=== PATIENT | female | born 1940 | race Caucasian/White ===

== ENCOUNTER → 2024-01-16 09:24 | Outpatient (REF) | payer MEDICARE, OTHER, SELFPAY | LOC: HWRAD 09:24 | PROVIDERS: ATTENDING PHYSICIAN Internal Medicine; REFERRING PHYSICIAN Obstetrics & Gynecology Gynecology | DX: Z12.31 Encounter for screening mammogram for malignant neoplasm of breast (principal); M81.0 Age-related osteoporosis without current pathological fracture | CPT/HCPCS: 77063; 77067; 77080 ==

== ENCOUNTER → 2024-05-10 10:43 | Outpatient (REF) | payer MEDICARE, OTHER, SELFPAY | LOC: WDC 10:43 | PROVIDERS: ATTENDING PHYSICIAN Internal Medicine | DX: R92.30 Dense breasts, unspecified (principal); R92.2 Inconclusive mammogram | CPT/HCPCS: 76641 ==

== ENCOUNTER → 2025-01-16 09:24 | Outpatient (REF) | payer MEDICARE, OTHER, SELFPAY | LOC: HWWDC 09:24 | PROVIDERS: ATTENDING PHYSICIAN Internal Medicine; REFERRING PHYSICIAN Obstetrics & Gynecology Gynecology | DX: Z12.31 Encounter for screening mammogram for malignant neoplasm of breast (principal) | CPT/HCPCS: 77063; 77067 ==

== ENCOUNTER → 2025-03-26 14:38 | Outpatient (REF) | payer MEDICARE, OTHER, SELFPAY | LOC: WDC 14:38 | PROVIDERS: ATTENDING PHYSICIAN Internal Medicine | DX: R92.30 Dense breasts, unspecified (principal) | CPT/HCPCS: 76641 ==